=== PATIENT | male | born 1970 | race Two or more races ===

== ENCOUNTER → 2020-04-21 | Outpatient (CLI) | payer OTHER | END | disposition home or self-care (01) | LOC: EDBD 08:15 → HBOWC 08:15 | PROVIDERS: ATTEND Nurse Practitioner Adult Health | DX: S93.491A Sprain of other ligament of right ankle, initial encounter (principal); S90.01XA Contusion of right ankle, initial encounter; S97.81XA Crushing injury of right foot, initial encounter; W24.0XXA Contact with lifting devices, not elsewhere classified, initial encounter; Y93.89 Activity, other specified; Y92.89 Other specified places as the place of occurrence of the external cause; Y99.0 Civilian activity done for income or pay | CPT/HCPCS: G0463; Z7500 ==

== ENCOUNTER → 2020-05-05 | Outpatient (CLI) | payer OTHER | END | disposition home or self-care (01) | LOC: EDBD → HBOWC 08:48 | PROVIDERS: ATTEND Nurse Practitioner Adult Health | DX: S93.491D Sprain of other ligament of right ankle, subsequent encounter (principal); S90.01XD Contusion of right ankle, subsequent encounter; S97.81XD Crushing injury of right foot, subsequent encounter; W24.0XXD Contact with lifting devices, not elsewhere classified, subsequent encounter | CPT/HCPCS: G0463; Z7500 ==

== ENCOUNTER → 2020-05-19 | Outpatient (CLI) | payer OTHER | END | disposition home or self-care (01) | LOC: HBOWC 08:48 | PROVIDERS: ATTEND Nurse Practitioner Adult Health | DX: S93.491D Sprain of other ligament of right ankle, subsequent encounter (principal); S90.01XD Contusion of right ankle, subsequent encounter; S97.81XD Crushing injury of right foot, subsequent encounter; W24.0XXD Contact with lifting devices, not elsewhere classified, subsequent encounter | CPT/HCPCS: G0463; Z7500 ==